=== PATIENT | male | born 2000 | race Two or more races ===

== ENCOUNTER 2019-11-19 17:12 | Emergency (ER) | payer MEDICAID ==
[~2019-11-19] VITALS: Ht 182.9 cm; Wt 118.2 kg
[2019-11-19 17:22] VITALS: BP 135/83
== END 2019-11-19 18:56 | disposition home or self-care (01) ==
LOC: EMS 17:12 → EDBD 17:12 → EMS 18:56
DX: Z03.818 Encounter for observation for suspected exposure to other biological agents ruled out (principal)
CPT/HCPCS: 99283; U0003